=== PATIENT | female | born 1985 | race Two or more races ===

== ENCOUNTER → 2024-10-01 | Outpatient (CLI) | payer MEDICAID, SELFPAY ==
--- NOTE | 2024-10-01 16:25 | XR_ITS ---
Examination: Abdomen AP single view Technique: AP portable supine abdomen, single view Exam date and time: October 01, 2024 1710 hours INDICATIONS: Diagnosis right kidney stones one month ago on outside CT examination FINDINGS: 4 mm calculus in what appears to be an atrophic right No ureteral calculi Significant stool in the right colon Intact osseous structures IMPRESSION: 4 mm calculus which appears to be within an atrophic right kidney
== END | disposition home or self-care (01) ==
LOC: CDIM 16:22
PROVIDERS: Referring Provider Surgery; Visit Provider Surgery
DX: N20.1 Calculus of ureter (principal)
CPT/HCPCS: 74018

== ENCOUNTER → 2025-01-12 | Outpatient (CLI) | payer MEDICAID, SELFPAY ==
--- NOTE | 2025-01-12 11:00 | XR_ITS ---
Examination: Screening digital mammography, bilateral Computer aided detection 3-D breast Tomosynthesis, bilateral Date and time of exam: January 12, 2025 1059 hours Indication: Screening Technique: Nonmagnified MLO, CC views of the breasts to been obtained, reconstructed from 3-D Tomosynthesis images. R2 computer aided detection program utilized for evaluation of suspicious masses and/or abnormal calcifications. 3-D Tomosynthesis images obtained. Findings: The breasts are heterogeneously dense, which may obscure small masses 5 mm circumscribed nodule upper outer right breast anterior depth Impression: BI-RADS Category 0: Incomplete: Need additional imaging evaluation 5 mm circumscribed round nodule upper outer right breast anterior depth, recommend follow-up spot tomographic views of this nodule as well as bilateral breast sonography to complete the workup
== END | disposition home or self-care (01) ==
LOC: CDIM 10:53
PROVIDERS: Referring Provider Behavior Technician; Visit Provider Behavior Technician
DX: Z12.31 Encounter for screening mammogram for malignant neoplasm of breast (principal); R92.8 Other abnormal and inconclusive findings on diagnostic imaging of breast; N63.11 Unspecified lump in the right breast, upper outer quadrant
CPT/HCPCS: 77063; 77067

== ENCOUNTER → 2025-05-06 | Outpatient (CLI) | payer MEDICAID, SELFPAY ==
--- NOTE | 2025-05-06 13:00 | XR_ITS ---
Examination: Breast ultrasound complete, bilateral Date and time of exam: May 06, 2025 1340 hours INDICATIONS: Mammogram January 12, 2025 5 mm circumscribed nodule upper outer right breast Technique: Real-time grayscale ultrasonographic imaging bilateral breasts, including all 4 quadrants as well as nipple retroareolar and axillary regions. Findings: Sonographic images right breast 1:00 cyst 6 x 4 mm 10:00 cyst 7 x 7 mm No solid nodules Sonographic images left breast. 3:00 cyst 8 x 8 mm No solid nodules Smaller bilateral cysts Bilateral retroareolar dilated ducts IMPRESSION: BI-RADS Category 2: Benign findings
--- NOTE | 2025-05-06 14:15 | XR_ITS ---
Examination: Diagnostic digital mammography, unilateral, right Computer aided detection 3-D breast Tomosynthesis, unilateral Date and time of exam: May 06, 2025 1407 hours INDICATIONS: Mammogram January 12, 2025 5 mm circumscribed nodule upper outer right breast anterior depth Technique: Nonmagnified MLO, CC views of the right breast have been obtained, reconstructed from 3-D Tomosynthesis images. R2 computer aided detection program utilized for evaluation of suspicious masses and/or abnormal calcifications. 3-D Tomosynthesis images obtained. Findings: The breast is heterogeneously dense, which may obscure small masses No suspicious nodule is depicted on the spot compression views Impression: BI-RADS category 2: Benign findings Return to yearly follow-up mammography
--- NOTE | 2025-05-06 15:08 | XR_ITS ---
Examination: Diagnostic digital mammography, unilateral, right Computer aided detection 3-D breast Tomosynthesis, unilateral Date and time of exam: May 06, 2025 1511 hours INDICATIONS: Mammogram January 12, 2025 5 mm circumscribed nodule upper outer right breast Technique: Nonmagnified MLO, CC views of the right, breast have been obtained, reconstructed from 3-D Tomosynthesis images. R2 computer aided detection program utilized for evaluation of suspicious masses and/or abnormal calcifications. 3-D Tomosynthesis images obtained. Findings: The breast is heterogeneously dense, which may obscure small masses No suspicious masses on this study Impression: BI-RADS category 2: Benign findings Recommend yearly follow-up mammography
== END | disposition home or self-care (01) ==
PROVIDERS: PCP Behavior Technician; Referring Provider Nurse Practitioner Family; Visit Provider Nurse Practitioner Family
DX: R92.8 Other abnormal and inconclusive findings on diagnostic imaging of breast (principal); R92.331 Mammographic heterogeneous density, right breast; N60.11 Diffuse cystic mastopathy of right breast
CPT/HCPCS: 76641; 77061; 77065; G0279